=== PATIENT | male | born 1950 | race Caucasian/White ===

== ENCOUNTER → 2017-05-21 | Day surgery (SDC) | payer OTHER, MEDICARE ==
[~2017-05-21] MED LIST: Bupivacaine 0.5%/EPINEPHrine 1:200,000 50 ML MDV ONE; Dexamethasone 4 MG/ML 5 ML MDV ONE; HYDROmorphone 0.5 MG/0.5 ML Syringe IVPUSH PRN; Ketorolac 30 MG/ML SDV ONE; Lactated Ringers 1,000 ML IV SCH; Lactated Ringers 1,000 ML ONE; Lidocaine 1% 2 ML ONE; Lidocaine 1% with EPINEPHrine 1:100,000 20 ML MDV ONE; Lidocaine 1%/Sod Bicarbonate in NS 8.4% 1 ML Syringe IDERM PRN; Midazolam 1 MG/ML 2 ML SDV ONE; Ondansetron 4 MG/2 ML SDV IVPUSH PRN; Ondansetron 4 MG/2 ML SDV ONE; Propofol 200 MG/20 ML SDV ONE; Sodium Chloride 0.9% 10 ML Syringe FLUSH PRN; ceFAZolin 1 GM Vial ONE; ePHEDrine/Normal Saline 25 MG/5 ML Syringe ONE; fentaNYL 100 MCG/2 ML SDV IVPUSH PRN; fentaNYL 250 MCG/5 ML SDV ONE
--- NOTE | 2017-05-21 10:45 | PCM.PREANE ---
Preanesthetic Assessment - Procedure Proposed Procedure: Left Inguinal Hernia Repair with Mesh - Anesthesia/Transfusion/Family Hx Anesthesia History: Prior Anesthesia Without Reaction Family History of Anesthesia Reaction: No Transfusion History: No Prior Transfusion(s) - Review of Systems General: No Symptoms Pulmonary: No Symptoms Cardiovascular: No Symptoms Gastrointestinal: No Symptoms Neurological: No Symptoms Other: Reports: None - Physical Assessment NPO Status Date: 05/20/17 NPO Status Time: 23:30 Pulse: 73 O2 Sat by Pulse Oximetry: 97 Respiratory Rate: 18 Blood Pressure: 179/90 Temperature: 36.9 C Weight: 87.543 kg ASA Class: 2 Mental Status: Alert & Oriented x3 Airway Class: Mallampati = 1 Dentition: Reports: Normal Dentition, Caries Thyro-Mental Finger Breadths: 3 Mouth Opening Finger Breadths: 3 ROM/Head Extension: Full Lungs: Clear to Auscultation, Normal Respiratory Effort Cardiovascular: Regular Rate, Regular Rhythm - Allergies Allergies/Adverse Reactions: Allergies Allergy/AdvReac Type Severity Reaction Status Date / Time No Known Allergies Allergy Verified 05/20/17 15:24 - Acknowledgements Anesthesia Type Planned: General Anesthesia Pt an Appropriate Candidate for the Planned Anesthesia: Yes Alternatives and Risks of Anesthesia Discussed w Pt/Guardian: Yes Pt/Guardian Understands and Agrees with Anesthesia Plan: Yes PreAnesthesia Questionnaire HEENT History: Reports: Hard of Hearing, Impaired Vision, Other (See Below) Other HEENT History: glasses, hearing aids Cardiovascular History: Reports: High Cholesterol, Hypertension Respiratory History: Reports: None Gastrointestinal History: Reports: Other (See Below) Other Gastrointestinal History: left inguinal hernia, blood in stool, hematochezia Genitourinary History: Reports: None 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 Neurological History: Reports: None Psychiatric History: Reports: None Endocrine/Metabolic History: Reports: None Hematologic History: Reports: None Immunologic History: Reports: None Oncologic (Cancer) History: Reports: None Dermatologic History: Reports: Other (See Below) Other Dermatologic History: sebaceous cyst - Past Surgical History Head Surgeries/Procedures: Reports: None HEENT Surgical History: Reports: None Cardiovascular Surgical History: Reports: None Respiratory Surgical History: Reports: None GI Surgical History: Reports: Colonoscopy Female Surgical History: Reports: None Male Surgical History: Reports: None Endocrine Surgical History: Reports: None Neurological Surgical History: Reports: None Musculoskeletal Surgical History: Reports: Other (See Below) Other Musculoskeletal Surgeries/Procedures:: knee surgery Oncologic Surgical History: Reports: None Dermatological Surgical History: Reports: None - SUBSTANCE USE Smoking Status *Q: Former Smoker Recreational Drug Use History: No - HOME MEDS Home Medications: Home Meds Lisinopril 20 mg PO DAILY 05/20/17 [History] Simvastatin [Zocor] 20 mg PO BTNUNITS 05/20/17 [History] amLODIPine Besylate [Amlodipine Besylate] 10 mg PO DAILY 05/20/17 [History] - CURRENT (IN HOUSE) MEDS Current Meds: Current Medications Lactated Ringer's (Ringers, Lactated) 1,000 mls @ 125 mls/hr IV ASDIRECTED NAGA Stop: 05/21/17 23:00 Lidocaine/Sodium Bicarbonate (Buffered Lidocaine 1% In Ns 8.4%) 0.25 ml IDERM ONETIME PRN PRN Reason: Prior to IV Start Stop: 05/21/17 18:00 Sodium Chloride (Saline Flush) 10 ml FLUSH ASDIRECTED PRN PRN Reason: Keep Vein Open Stop: 05/21/17 18:00 Discontinued Medications Cefazolin Sodium (Ancef) Confirm Administered Dose 2 gm .ROUTE .STK-MED ONE Stop: 05/21/17 10:33 Cefazolin Sodium (Ancef) Confirm Administered Dose 2 gm .ROUTE .STK-MED ONE Stop: 05/21/17 10:44 Dexamethasone (Dexamethasone) Confirm Administered Dose 20 mg .ROUTE .STK-MED ONE Stop: 05/21/17 10:44 Fentanyl (Sublimaze) Confirm Administered Dose 250 mcg .ROUTE .STK-MED ONE Stop: 05/21/17 10:34 Fentanyl (Sublimaze) Confirm Administered Dose 250 mcg .ROUTE .STK-MED ONE Stop: 05/21/17 10:45 Lidocaine HCl (Xylocaine-Mpf 1%) Confirm Administered Dose 2 mls @ as directed .ROUTE .STK-MED ONE Stop: 05/21/17 10:33 Lidocaine HCl (Xylocaine-Mpf 1%) Confirm Administered Dose 2 mls @ as directed .ROUTE .STK-MED ONE Stop: 05/21/17 10:33 Lactated Ringer's (Ringers, Lactated) Confirm Administered Dose 1,000 mls @ as directed .ROUTE .STK-MED ONE Stop: 05/21/17 10:48 Ketorolac Tromethamine (Toradol) Confirm Administered Dose 30 mg .ROUTE .STK- MED ONE Stop: 05/21/17 10:33 Ketorolac Tromethamine (Toradol) Confirm Administered Dose 30 mg .ROUTE .STK- MED ONE Stop: 05/21/17 10:44 Midazolam HCl (Versed 1 Mg/Ml) Confirm Administered Dose 2 mg .ROUTE .STK-MED ONE Stop: 05/21/17 10:34 Midazolam HCl (Versed 1 Mg/Ml) Confirm Administered Dose 2 mg .ROUTE .STK-MED ONE Stop: 05/21/17 10:44 Ondansetron HCl (Zofran) Confirm Administered Dose 4 mg .ROUTE .STK-MED ONE Stop: 05/21/17 10:33 Ondansetron HCl (Zofran) Confirm Administered Dose 4 mg .ROUTE .STK-MED ONE Stop: 05/21/17 10:44 Propofol (Diprivan 20 Ml) Confirm Administered Dose 200 mg .ROUTE .STK-MED ONE Stop: 05/21/17 10:33
--- NOTE | 2017-05-21 12:06 | PCM.OPNOTE ---
- General Post-Op/Procedure Note Date of Surgery/Procedure: 05/21/17 Operative Procedure(s): Left groin exploration with excision lipoma Findings: 4 cm subcutaneous lipoma Pre Op Diagnosis: Recurrent left inguinal hernia Post-Op Diagnosis: Lipoma of the lower abdominal wall Anesthesia Technique: General LMA, Local Primary Surgeon: Samuel Almonte Pathology: None EBL in mLs: 2 Complications: None Condition: Good Free Text/Narrative:: After adequate LMA general anesthesia was obtained the patient's left lower quadrant and groin were clipper prepped then sterilely prepped and draped for a recurrent left inguinal hernia repair. Local analgesia was given into the subcutaneous tissues and skin. A 15 blade was used to enter the previous incision just medial to the groin bulge. This incision was deepened sharply with scissors and cautery. The herniated fat immediately popped into the entry incision. I carefully dissected away the fat from the overlying skin and adjacent surrounding subcutaneous tissues down towards the fascial level to make sure that this wasn't a leading edge fat lipoma from a small herniation through the previously placed mesh many years ago. It was not as there was no communication with the cord or the abdominal wall fascia or rectus. The lipoma was then completely excised circumferentially and removed. Hemostasis was obtained with cautery. A small vein was ligated with 3-0 Vicryl. Hemostasis was assured with spot cautery. Additional local was given. The subcutaneous tissues including Miranda's was closed with a running 3-0 Vicryl suture. The skin was closed with 4-0 subarticular Vicryl suture. Mastisol and Steri-Strips along with gauze were used for the dressing. There were no procedural complications.
--- NOTE | 2017-05-21 12:09 | PCM.POSTAN ---
POST ANESTHESIA ASSESSMENT - MENTAL STATUS Mental Status: Somnolent - VITAL SIGNS Pulse Rate: 61 SaO2: 95 Resp Rate: 13 Blood Pressure: 109/73 Temperature: 97.5 F - RESPIRATORY Respiratory Status: Respiratory Rate WNL, Airway Patent, O2 Saturation Stable, Supplemental Oxygen, Labored Respirations - CARDIOVASCULAR CV Status: Pulse Rate WNL, Blood Pressure Stable - GASTROINTESTINAL GI Status: No Symptoms - PAIN Pain Score: 0 - POST OP HYDRATION Hydration Status: Adequate & Stable
--- NOTE | 2017-05-21 13:29 | PCM48HPAN ---
Post Anesthesia Note - EVALUATION WITHIN 48HRS OF ANESTHETIC Vital Signs in Normal Range: Yes Patient Participated in Evaluation: Yes Respiratory Function Stable: Yes Airway Patent: Yes Cardiovascular Function Stable: Yes Hydration Status Stable: Yes Pain Control Satisfactory: Yes Nausea and Vomiting Control Satisfactory: Yes Mental Status Recovered: Yes Pulse Rate: 61 Resp Rate: 13 Temperature: 97.5 F Blood Pressure: 109/73
== END | disposition home or self-care (01) ==
LOC: JD.SDS 09:59
PROVIDERS: ATTEND Surgery
DX: D17.1 Benign lipomatous neoplasm of skin and subcutaneous tissue of trunk (principal); I10 Essential (primary) hypertension; E78.5 Hyperlipidemia, unspecified; Z79.899 Other long term (current) drug therapy; Z87.891 Personal history of nicotine dependence
CPT/HCPCS: 22903; J0690; J1100; J1885; J2250; J2405; J3010; J7050; J7120; 00920; J2001; J2704

== ENCOUNTER 2020-05-24 07:05 | Day surgery (SDC) | payer OTHER ==
[~2020-05-24 07:05] MED LIST changes: -Bupivacaine 0.5%/EPINEPHrine 1:200,000 50 ML MDV ONE; -Dexamethasone 4 MG/ML 5 ML MDV ONE; -HYDROmorphone 0.5 MG/0.5 ML Syringe IVPUSH PRN; -Ketorolac 30 MG/ML SDV ONE; -Lactated Ringers 1,000 ML ONE; -Lidocaine 1% 2 ML ONE; -Lidocaine 1% with EPINEPHrine 1:100,000 20 ML MDV ONE; -Midazolam 1 MG/ML 2 ML SDV ONE; -Ondansetron 4 MG/2 ML SDV IVPUSH PRN; -Ondansetron 4 MG/2 ML SDV ONE; -Propofol 200 MG/20 ML SDV ONE; -ceFAZolin 1 GM Vial ONE; -ePHEDrine/Normal Saline 25 MG/5 ML Syringe ONE; -fentaNYL 100 MCG/2 ML SDV IVPUSH PRN; -fentaNYL 250 MCG/5 ML SDV ONE
[2020-05-24] MEDS ORDERED: Lidocaine 1% 4 ML ONE (07:14)
[2020-05-24] MEDS ORDERED: Propofol 200 MG/20 ML SDV ONE (07:14)
[2020-05-24] MEDS ORDERED: Midazolam 1 MG/ML 2 ML SDV ONE (07:14)
[2020-05-24] MEDS ORDERED: fentaNYL 250 MCG/5 ML SDV ONE (07:14)
[2020-05-24] MEDS ORDERED: Ondansetron 4 MG/2 ML SDV ONE (07:14)
[2020-05-24] MEDS ORDERED: Rocuronium 50 MG/5 ML Vial ONE (07:14)
[2020-05-24] MEDS ORDERED: Lidocaine 1% with EPINEPHrine 1:100,000 10 ML MDV ONE (07:15)
[2020-05-24] MEDS ORDERED: Bupivacaine 0.5%/EPINEPHrine 1:200,000 50 ML MDV ONE (07:15)
--- NOTE | 2020-05-24 07:39 | PCM.PREANE ---
Preanesthetic Assessment - Procedure Proposed Procedure: lap choley - Anesthesia/Transfusion/Family Hx Anesthesia History: Prior Anesthesia Without Reaction Family History of Anesthesia Reaction: No Transfusion History: No Prior Transfusion(s) - Review of Systems General: Chills (gets cold easy) Pulmonary: No Symptoms Cardiovascular: No Symptoms Gastrointestinal: Abdominal Pain (gall bladder attack) Neurological: No Symptoms Other: Reports: Diabetes - Physical Assessment NPO Status Date: 05/23/20 NPO Status Time: 23:30 Vital Signs: 158/86 86 96% 16 Height: 6 ft Weight: 92.7 kg ASA Class: 2 Mental Status: Alert & Oriented x3 Airway Class: Mallampati = 1 Dentition: Reports: Normal Dentition Thyro-Mental Finger Breadths: 3 Mouth Opening Finger Breadths: 3 ROM/Head Extension: Full Lungs: Clear to Auscultation, Normal Respiratory Effort Cardiovascular: Regular Rate, Regular Rhythm - Allergies Allergies/Adverse Reactions: Allergies Allergy/AdvReac Type Severity Reaction Status Date / Time No Known Allergies Allergy Verified 05/23/20 15:04 - Blood Blood Available: No - Acknowledgements Anesthesia Type Planned: General Anesthesia Pt an Appropriate Candidate for the Planned Anesthesia: Yes Alternatives and Risks of Anesthesia Discussed w Pt/Guardian: Yes Pt/Guardian Understands and Agrees with Anesthesia Plan: Yes PreAnesthesia Questionnaire HEENT History: Reports: Hard of Hearing, Impaired Vision, Other (See Below) Other HEENT History: glasses, hearing aids Cardiovascular History: Reports: High Cholesterol, Hypertension Respiratory History: Reports: None Gastrointestinal History: Reports: Other (See Below) Other Gastrointestinal History: left inguinal hernia, blood in stool, hematochezia Genitourinary History: Reports: None 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 Musculoskeletal History: Reports: None Neurological History: Reports: None Psychiatric History: Reports: None Endocrine/Metabolic History: Reports: Other (See Below) Other Endocrine/Metabolic History: Pre-diabetic Hematologic History: Reports: None Immunologic History: Reports: None Oncologic (Cancer) History: Reports: None Dermatologic History: Reports: Other (See Below) Other Dermatologic History: sebaceous cyst - Infectious Disease History Infectious Disease History: Reports: Novel Coronavirus Other Infectious Disease History: 10/2019 - Past Surgical History Head Surgeries/Procedures: Reports: None HEENT Surgical History: Reports: None Cardiovascular Surgical History: Reports: None Respiratory Surgical History: Reports: None GI Surgical History: Reports: Colonoscopy, Hernia, Inguinal, Other (See Below) (fatty tissue removal) Female Surgical History: Reports: None Male Surgical History: Reports: None Endocrine Surgical History: Reports: None Neurological Surgical History: Reports: None Musculoskeletal Surgical History: Reports: Knee Replacement Other Musculoskeletal Surgeries/Procedures:: knee surgery Oncologic Surgical History: Reports: None Dermatological Surgical History: Reports: None - SUBSTANCE USE Tobacco Use Status *Q: Former Tobacco User Second Hand Smoke Exposure: No Days Per Week of Alcohol Use: 0 Recreational Drug Use History: No - HOME MEDS Home Medications: Home Meds Lisinopril 40 mg PO BID 05/20/17 [History] Simvastatin [Zocor] 20 mg PO BEDTIME 05/20/17 [History] amLODIPine Besylate [Amlodipine Besylate] 10 mg PO DAILY 05/20/17 [History] Aspirin [Adriana Chewable Aspirin] 81 mg PO DAILY 05/22/20 [History] Cholecalciferol (Vitamin D3) [Vitamin D3] 1,000 unit PO DAILY 05/22/20 [History] Fish,Saf,Flx,Brg Oils/O3,6,9N2 [Biqd-Hece-Vdaety Oil Softgel] 2 tab PO DAILY 05/22/20 [History] Ginkgo Biloba Switzer Extract [Ginkgo Biloba] 60 mg PO DAILY 05/22/20 [History] Glucosamine [Glucosamine Sulfate] 1,000 mg PO DAILY 05/22/20 [History] Magnesium Oxide [Magnesium] 500 mg PO DAILY 05/22/20 [History] Multivit-Minerals/Herbal 121 [Urinozinc Prostate Formula Cap] 1 cap PO BID 05/22/20 [History] Multivitamin [Daily Multiple Vitamin] 1 tab PO DAILY 05/22/20 [History] Nortriptyline 10 mg PO BEDTIME 05/22/20 [History] Potassium Gluconate [Potassium] 99 mg PO DAILY 05/22/20 [History] Turmeric/Turmeric Root Extract [Turmeric 500 mg Capsule] 500 mg PO DAILY 05/22/20 [History] Vit B12/Folic Acid/B6/Aa No.15 [Glycotrol] 1 cap PO DAILY 05/22/20 [History] Vitamin E 400 unit PO DAILY 05/22/20 [History] metFORMIN [Glucophage] 1,000 mg PO DAILY 05/22/20 [History] - CURRENT (IN HOUSE) MEDS Current Meds: Current Medications Lactated Ringer's (Ringers, Lactated) 1,000 mls @ 125 mls/hr IV ASDIRECTED NAGA Stop: 05/24/20 23:00 Lidocaine/Sodium Bicarbonate (Buffered Lidocaine 1% In Ns 8.4%) 0.25 ml IDERM ONETIME PRN PRN Reason: Prior to IV Start Stop: 05/24/20 18:00 Sodium Chloride (Saline Flush) 10 ml FLUSH ASDIRECTED PRN PRN Reason: Keep Vein Open Stop: 05/24/20 18:00 Discontinued Medications Bupivacaine HCl/Epinephrine Bitart (Marcaine 0.5%/Epinephrine 1:200,000) Confirm Administered Dose 50 ml .ROUTE .STK-MED ONE Stop: 05/24/20 07:16 Fentanyl (Sublimaze) Confirm Administered Dose 250 mcg .ROUTE .STK-MED ONE Stop: 05/24/20 07:15 Lidocaine HCl (Xylocaine-Mpf 1%) Confirm Administered Dose 4 mls @ as directed .ROUTE .STK-MED ONE Stop: 05/24/20 07:15 Lidocaine/Epinephrine (Xylocaine 1% With Epinephrine 1:100,000) Confirm Administered Dose 30 ml .ROUTE .STK-MED ONE Stop: 05/24/20 07:16 Midazolam HCl (Versed 1 Mg/Ml) Confirm Administered Dose 2 mg .ROUTE .STK-MED ONE Stop: 05/24/20 07:15 Ondansetron HCl (Zofran) Confirm Administered Dose 4 mg .ROUTE .STK-MED ONE Stop: 05/24/20 07:15 Propofol (Diprivan 20 Ml) Confirm Administered Dose 200 mg .ROUTE .STK-MED ONE Stop: 05/24/20 07:15 Rocuronium [place] (Zemuron) Confirm Administered Dose 50 mg .ROUTE .STK-MED ONE Stop: 05/24/20 07:15
[2020-05-24] MEDS ORDERED: ceFAZolin 1 GM Vial ONE (07:55)
[2020-05-24] MEDS ORDERED: Dexamethasone 4 MG/ML 5 ML MDV ONE (08:28)
[2020-05-24] MEDS ORDERED: Ketamine 500 mg/10 ML MDV ONE (08:29)
[2020-05-24] MEDS ORDERED: Ondansetron 4 MG/2 ML SDV IVPUSH PRN (08:39)
[2020-05-24] MEDS ORDERED: fentaNYL 100 MCG/2 ML SDV IVPUSH PRN (08:39)
[2020-05-24] MEDS ORDERED: HYDROmorphone 0.5 MG/0.5 ML Syringe IVPUSH PRN (08:39)
[2020-05-24] MEDS ORDERED: HYDROmorphone 1 MG/ML Syringe ONE (08:50)
[2020-05-24] MEDS ORDERED: Lactated Ringers 1,000 ML ONE (09:16)
[2020-05-24] MEDS ORDERED: Ketorolac 15 MG/ML SDV ONE (09:53)
--- NOTE | 2020-05-24 09:56 | PCM.OPNOTE ---
- General Post-Op/Procedure Note Date of Surgery/Procedure: 05/24/20 Operative Procedure(s): Laparoscopic cholecystectomy Findings: Gallbladder with stone at neck Pre Op Diagnosis: symptomatic cholelithiasis Post-Op Diagnosis: same Anesthesia Technique: General ET Tube, Local Primary Surgeon: Reta Andrews Anesthesia Provider: Josias Leonard Pathology: gallbladder with contents Fluid Replacement, Intraop: 1,000 Output, Urine Amount: 0 EBL in mLs: 20 Complications: none apparent Condition: Good
--- NOTE | 2020-05-24 10:08 | PCM.PRNOTE ---
- Free Text/Narrative Note: OPERATIVE REPORT Date of Surgery/Procedure: May 24, 2020 Operative Procedure(s): laparoscopic cholecystectomy Findings: Gallbladder with stones Pre Op Diagnosis: Symptomatic cholelithiasis Post-Op Diagnosis: Same Anesthesia Technique: General ET Tube Primary Surgeon: Reta Andrews MD Anesthesia Provider: Josias Leonard CRNA Pathology: Gallbladder with stones Fluid Replacement, Intraop: 1000cc Output, Urine Amount: 0cc EBL: 20cc Drain/Tube Comments: None Indication for the procedure: The patient is a 69-year-old gentleman who presented to the emergency department with an episode of biliary colic. He was admitted to the hospital for pain control and possible surgery. Upon further evaluation his pain resolved and he did not have evidence of acute cholecystitis but did have a large gallstone. He was scheduled for surgery in short follow- up. The patient was counseled for laparoscopic cholecystectomy, with possible conversion to open. After discussion of the risks of infection, bleeding and injury to the bile duct as well as increased complication from previous intra- abdominal surgery, the patient's consent was obtained. Description of the procedure: The patient presented to the outpatient holding area on the day of the procedure. The history and physical were verified and consent was present and on the chart. The patient was taken back to the operating room and placed in supine position on the operating table. SCD boots were placed and functional prior to the start of the procedure. Preoperative antibiotics were administered according to SCIP protocol, Ancef 2 g IV. A surgical timeout was performed. The patient then had induction of general anesthesia and was intubated without difficulty. The patient was prepped and draped in standard surgical fashion. We began by making an infraumbilical vertical incision and deepened this down through subcutaneous fat to the level of the fascia. This was grasped and incised. We bluntly entered through the peritoneum and a finger sweep was done. The 12 mm balloon Hobson port was then inserted into the abdomen and the bal loon inflated. Insufflation was attached and we had appropriate opening pressures. The abdomen was then insufflated to 15 mmHg. We inserted a scope into the abdomen and inspected the area where we had entered. There was no evidence of injury to surrounding structures with no evidence of bile or bleeding. A TAP block was then performed using 1% lidocaine with epinephrine mixed with 0.5% bupivacaine with epinephrine. The patient was then positioned with head up and right side up to facilitate exposure of the gallbladder. We then proceeded with placing our additional ports. A 5mm port was placed in the epigastric region. Two additional 5mm ports placed under direct visualization in the right upper quadrant. Once we had sufficiently exposed the dome of the gallbladder. This was grasped and retracted cephalad. We proceeded with our dissection to expose the cystic duct and cystic artery. We did have a critical view. The cystic duct and artery were then clipped and cut using endos copic scissors. We then proceeded to fully dissect the gallbladder off of the cystic plate using the Bovie device. The gallbladder was then placed in the Endo Catch bag and withdrawn towards the umbilical port. We then inspected the area of the dissection. There was no significant bleeding and hemostasis was achieved. We then inspected the port sites and desufflated the abdomen. The ports were then removed. The gallbladder was withdrawn through the umbilical port site. We then proceeded to close the umbilical port site using an 0 Vicryl stitch. We had good closure of the fascia. A bolanos perficial 4-0 monocryl suture was used to approximate the skin. The skin was covered with Dermabond surgical glue. The patient tolerated the procedure well and was extubated without difficulty. He was transported to the PACU in stable condition. All sponge, needle counts correct. I was scrubbed and actively participated in the entire procedure. No immediate complications noted. Complications: None apparent Condition: Good Reta Andrews MD General Surgery
--- NOTE | 2020-05-24 10:18 | PCM.POSTAN ---
POST ANESTHESIA ASSESSMENT - MENTAL STATUS Mental Status: Somnolent - VITAL SIGNS Vital Signs: Last Vital Signs Temp 98.5 F 05/24/20 07:45 Pulse 86 05/24/20 07:45 Resp 16 05/24/20 07:45 BP 158/86 H 05/24/20 07:45 Pulse Ox 96 05/24/20 07:45 1010 151/81 95 11 97.8 95% - RESPIRATORY Respiratory Status: Respiratory Rate WNL, Airway Patent, O2 Saturation Stable, Supplemental Oxygen - CARDIOVASCULAR CV Status: Pulse Rate WNL, Blood Pressure Stable - GASTROINTESTINAL GI Status: No Symptoms - PAIN Pain Score: 0 (sleeping) - POST OP HYDRATION Hydration Status: Adequate & Stable
[2020-05-24] MEDS ORDERED: Acetaminophen/HYDROcodone 325-5 MG Tab PO SCH (11:45)
--- NOTE | 2020-05-24 12:05 | PCM48HPAN ---
Post Anesthesia Note - EVALUATION WITHIN 48HRS OF ANESTHETIC Vital Signs in Normal Range: Yes Patient Participated in Evaluation: Yes Respiratory Function Stable: Yes Airway Patent: Yes Cardiovascular Function Stable: Yes Hydration Status Stable: Yes Pain Control Satisfactory: Yes (pain pill taken. some pain right upper quad) Nausea and Vomiting Control Satisfactory: Yes Mental Status Recovered: Yes Vital Signs: Last Vital Signs Temp 97.9 F 05/24/20 10:10 Pulse 86 05/24/20 11:50 Resp 16 05/24/20 11:50 BP 136/74 05/24/20 11:50 Pulse Ox 96 05/24/20 11:50
== END 2020-05-24 14:00 | disposition home or self-care (01) ==
LOC: JD.SDS 07:05
PROVIDERS: ATTEND Surgery
DX: K80.12 Calculus of gallbladder with acute and chronic cholecystitis without obstruction (principal); K82.8 Other specified diseases of gallbladder; E78.00 Pure hypercholesterolemia, unspecified; I10 Essential (primary) hypertension; Z98.890 Other specified postprocedural states; Z79.899 Other long term (current) drug therapy; Z79.82 Long term (current) use of aspirin; Z87.891 Personal history of nicotine dependence
CPT/HCPCS: 36415; 47562; 80048; 88304; A9270; J0690; J1100; J1170; J1885; J2250; J2405; J2704; J2710; J3010; J3490; J7120; 00790

== ENCOUNTER → 2021-07-11 | Day surgery (SDC) | payer OTHER ==
[~2021-07-11] MED LIST changes: +Bupivacaine 0.25% 10 ML SDV ONE; +Lidocaine 1% 30 ML SDV ONE; +Propofol 200 MG/20 ML SDV ONE; +Sodium Chloride 0.9% 10 ML Syringe FLUSH SCH; +ceFAZolin 1 GM Vial ONE
== END | disposition home or self-care (01) ==
LOC: JD.SDS 10:50
PROVIDERS: ATTEND Orthopaedic Surgery
DX: G56.01 Carpal tunnel syndrome, right upper limb (principal); E11.9 Type 2 diabetes mellitus without complications; G47.30 Sleep apnea, unspecified; H54.7 Unspecified visual loss; E78.00 Pure hypercholesterolemia, unspecified; H91.90 Unspecified hearing loss, unspecified ear; N40.0 Benign prostatic hyperplasia without lower urinary tract symptoms; I10 Essential (primary) hypertension; N28.9 Disorder of kidney and ureter, unspecified; Z79.82 Long term (current) use of aspirin; Z79.84 Long term (current) use of oral hypoglycemic drugs; Z79.899 Other long term (current) drug therapy; Z87.891 Personal history of nicotine dependence
CPT/HCPCS: 64721; J0690; J2704; J3490; 01810; 99100

== ENCOUNTER 2022-01-24 05:59 | Day surgery (SDC) | payer OTHER ==
[~2022-01-24 05:59] MED LIST changes: -Bupivacaine 0.25% 10 ML SDV ONE; -Lidocaine 1% 30 ML SDV ONE; -Propofol 200 MG/20 ML SDV ONE; -ceFAZolin 1 GM Vial ONE
[2022-01-24] MEDS ORDERED: Lidocaine 1% 4 ML ONE (06:07)
[2022-01-24] MEDS ORDERED: Propofol 200 MG/20 ML SDV ONE (06:07)
[2022-01-24] MEDS ORDERED: fentaNYL 100 MCG/2 ML SDV ONE (06:09)
[2022-01-24] MEDS ORDERED: Midazolam 1 MG/ML 2 ML SDV ONE (06:09)
[2022-01-24] MEDS ORDERED: ceFAZolin 2 GM Vial ONE (06:29)
[2022-01-24] MEDS ORDERED: Lidocaine 1% 10 ML MDV ONE ×2 (06:34→06:40)
[2022-01-24] MEDS ORDERED: Bupivacaine 0.25% 10 ML SDV ONE ×2 (06:35→06:40)
[2022-01-24] MEDS ORDERED: Ondansetron 4 MG/2 ML SDV ONE (07:17)
[2022-01-24] MEDS ORDERED: Ketorolac 30 MG/ML SDV ONE (07:17)
== END 2022-01-24 08:35 | disposition home or self-care (01) ==
LOC: JD.SDS 05:59
PROVIDERS: ATTEND Orthopaedic Surgery
DX: M65.841 Other synovitis and tenosynovitis, right hand (principal); M65.311 Trigger thumb, right thumb; I10 Essential (primary) hypertension; R73.03 Prediabetes; Z86.16 Personal history of COVID-19; N40.0 Benign prostatic hyperplasia without lower urinary tract symptoms; E78.00 Pure hypercholesterolemia, unspecified; Z87.891 Personal history of nicotine dependence; Z98.890 Other specified postprocedural states; Z79.899 Other long term (current) drug therapy
CPT/HCPCS: 26055; 82947; J0690; J1885; J2250; J2405; J2704; J3010; J3490; J7120; 01810

== ENCOUNTER 2022-10-02 09:53 | Day surgery (SDC) | payer OTHER ==
[~2022-10-02 09:53] MED LIST changes: +Dexmedetomidine 200 MCG/2 ML SDV ONE; -Lactated Ringers 1,000 ML IV SCH; -Lidocaine 1%/Sod Bicarbonate in NS 8.4% 1 ML Syringe IDERM PRN; +Midazolam 1 MG/ML 2 ML SDV ONE; +Ropivacaine 0.5% 5 MG/ML 30 ML SDV ONE; -Sodium Chloride 0.9% 10 ML Syringe FLUSH PRN; -Sodium Chloride 0.9% 10 ML Syringe FLUSH SCH; +fentaNYL 100 MCG/2 ML SDV ONE
[2022-10-02] MEDS ORDERED: oxyCODONE ER 10 MG TAB.ER PO SCH (10:00)
[2022-10-02] MEDS ORDERED: Sodium Chloride 0.9% 10 ML Syringe FLUSH PRN (10:00)
[2022-10-02] MEDS ORDERED: Pregabalin 25 MG Cap PO SCH (10:00)
[2022-10-02] MEDS ORDERED: Acetaminophen 325 MG Tab PO SCH (10:00)
[2022-10-02] MEDS: Lactated Ringers 1,000 ML IV SCH ×2 (10:25→13:44)
[2022-10-02] MEDS ORDERED: Lidocaine 1% 2 ML ONE (10:44)
[2022-10-02] MEDS ORDERED: Vancomycin 1 GM SDV ONE (10:45)
[2022-10-02] MEDS ORDERED: Tranexamic Acid 1,000 MG/10 ML Vial ONE (10:45)
[2022-10-02] MEDS ORDERED: Dexamethasone 4 MG/ML 5 ML MDV ONE (10:55)
[2022-10-02] MEDS ORDERED: EPINEPHrine 1 MG/ML SDV ONE (10:55)
[2022-10-02] MEDS ORDERED: Propofol 200 MG/20 ML SDV ONE (11:24)
[2022-10-02] MEDS ORDERED: Lidocaine 1% PF 2 ML SDV ONE (11:30)
[2022-10-02] MEDS ORDERED: ceFAZolin 2 GM Vial ONE (11:42)
[2022-10-02] MEDS ORDERED: Ondansetron 4 MG/2 ML SDV ONE (12:06)
[2022-10-02] MEDS ORDERED: HYDROmorphone 0.5 MG/0.5 ML Syringe IVPUSH PRN (12:14)
[2022-10-02] MEDS ORDERED: fentaNYL 100 MCG/2 ML SDV IVPUSH PRN (12:14)
== END 2022-10-02 16:30 | disposition home or self-care (01) ==
LOC: JD.SDS 09:53
PROVIDERS: ATTEND Orthopaedic Surgery
DX: M12.812 Other specific arthropathies, not elsewhere classified, left shoulder (principal); I10 Essential (primary) hypertension; G47.33 Obstructive sleep apnea (adult) (pediatric); E11.9 Type 2 diabetes mellitus without complications; E78.00 Pure hypercholesterolemia, unspecified; N40.0 Benign prostatic hyperplasia without lower urinary tract symptoms; G43.909 Migraine, unspecified, not intractable, without status migrainosus; E11.42 Type 2 diabetes mellitus with diabetic polyneuropathy; Z79.84 Long term (current) use of oral hypoglycemic drugs; Z79.899 Other long term (current) drug therapy; Z96.653 Presence of artificial knee joint, bilateral; Z87.891 Personal history of nicotine dependence; Z79.82 Long term (current) use of aspirin
CPT/HCPCS: 23472; 64415; 76000; 82947; 97165; 97530; C1713; C1776; J0171; J0690; J1100; J2250; J2405; J2704; J2795; J3010; J3370; J7120; 01638; 99100; J3490